=== PATIENT | male | born 1975 | race Asian ===

== ENCOUNTER 2019-06-25 15:56 | Emergency (ER) | payer OTHER ==
[~2019-06-25] VITALS: Ht 167.6 cm; Wt 76.2 kg
[2019-06-25 19:46] VITALS: BP 128/77
== END 2019-06-25 20:36 | disposition home or self-care (01) ==
LOC: ED 20:30
DX: N20.0 Calculus of kidney (principal)
CPT/HCPCS: 36415; 74176; 80048; 81001; 82040; 85025; 96372; 99284; J1885